=== PATIENT | male | born 1955 | race Caucasian/White ===

== ENCOUNTER 2018-04-07 14:33 | Outpatient (CLI) | payer BC ==
--- NOTE | 2018-04-07 16:35 | RAD ---
RADIOGRAPH CHEST 2 VIEWS: 04/07/18 HISTORY: 63-year-old male with dyspnea. FINDINGS: There is hyperinflation of the lungs, consistent with COPD. There is no evidence of air space densit y, pneumothorax, or pulmonary edema. There is no cardiomegaly or pleural effusion. IMPRESSION: 1) No acute cardiopulmonary findings. 2) Emphysema. jn [] POS: [facility]
== END 2018-04-07 14:34 | disposition home or self-care (01) ==
LOC: RAD 14:33
PROVIDERS: ATTEND Internal Medicine Critical Care Medicine
DX: R06.00 Dyspnea, unspecified (principal); J43.9 Emphysema, unspecified
CPT/HCPCS: 71046

== ENCOUNTER 2018-07-22 14:13 | Outpatient (CLI) | payer BC ==
--- NOTE | 2018-07-22 14:29 | RAD ---
TWO VIEWS CHEST: Comparison: None. History: Dyspnea. FINDINGS: Two views of the chest show normal sized cardiomediastinal silhouette. There is no evidence of consol idation, mass, or pleural effusion. The bones are unremarkable. IMPRESSION: No evidence of acute cardiopulmonary disease. POS: [facility]
== END 2018-07-22 14:14 | disposition home or self-care (01) ==
LOC: RAD 14:13
PROVIDERS: ATTEND Internal Medicine Critical Care Medicine
DX: R06.00 Dyspnea, unspecified (principal)
CPT/HCPCS: 71046